=== PATIENT | female | born 2000 | race Caucasian/White ===

== ENCOUNTER 2021-01-09 10:19 | Outpatient (CLI) | payer MEDICAID, SELFPAY ==
--- NOTE | 2021-01-09 | US_ITS ---
WS: [id number] OBSTETRICAL ULTRASOUND COMPLETE HISTORY: ANATOMY SCAN COMPARISON: None available. Single intrauterine gestation in Cephalic presentation. Cervix is Closed and normal length. Cervical length is 4.8 cm. Normal amount of amniotic fluid surrounds the fetus. Placenta: Anterior, no previa or abruption. Placenta grade 1 Heart: 133 BPM. Limited four-chamber evaluation of the heart. Chambers are indistinct but appear norm al size. No obvious abnormality of the outflow tracts. Anatomy: Intracranial structures and spine are normal. kidneys, stomach and urinary bladd er are unremarkable. Abdominal wall, three-vessel cord and cord insertion site are normal. 4 extremities are present. profile: Not visualized. Gender: Female. measurements: BPD = 6.3 cm = 25w3d HC = 23.2 cm = 25w1d AC = 20.0 cm = 24w5d FL = 4.6 cm = 25w1d EFW: 753 g. Biometry is internally concordant. AGA by ultrasound: 25w2d JUNE by ultrasound: 04/22/2021 US/US OB >= 14 weeks fetus [id number] IMPRESSION: 1. Single intrauterine gestation of 25w2d with an JUNE of 04/22/2021. 2. Limited evaluation of the heart and outflow tracts, no abnormality identifi ed concerning the heart. Nonvisualization of the profile. The remaining a natomy is normal.
== END 2021-01-09 10:20 | disposition home or self-care (01) ==
PROVIDERS: Visit Provider Family Medicine
DX: Z36.89 Encounter for other specified antenatal screening (principal); Z3A.25 25 weeks gestation of pregnancy
CPT/HCPCS: 76805

== ENCOUNTER 2021-02-22 16:25 | Emergency (ER) | payer MEDICAID, SELFPAY ==
[2021-02-22 16:39] VITALS: PULSE 104; RESP 18; TEMP 36.6; O2SAT 99; BMI 34.9
--- NOTE | 2021-02-22 17:23 | XRR_ITS ---
PROCEDURE INFORMATION: Exam: XR Left Ankle Exam date and time: 02/22/2021 5:23 PM Age: 20 years old Clinical indication: Patient HX: Left ankle pain; Additional info: Injury, 31 weeks preg TECHNIQUE: Imaging protocol: XR Left ankle. Views: 3 or more views. COMPARISON: No relevant prior studies available. FINDINGS: Bones/joints: Normal. Soft tissues: Normal. XR/XR ankle LT min 3V* [id number] IMPRESSION: No acute findings. Radiation Dose CTDIVOL = (mGy): DLP = (mGy-cm)
--- NOTE | 2021-02-22 17:29 | ED_ITS ---
HPI - Extremity Problem General: Chief complaint: Extremity Injury, Lower Stated complaint: Twisted Left Ankle, 32 wks preg Time Seen by Provider: 02/22/21 17:22 History of Present Illness: HPI Narrative: 20-year-old female comes in today with injury to the left ankle. Patient was walking down some steps and missed stepped on the last step causing her ankle to twist. Patient has some pain and discomfort to the lateral left ankle. Patient is 31 weeks . Patient appears well. No obvious deformity is noted. Review of Systems General: Reports: 10 or more systems reviewed and unremarkable except in HPI and below Musc: Reports: other (Left ankle injury.) PFS ED PFSH: Medical History No pertinent past medical history Denies diabetes, asthma, hypertension, seizures, DVT/PE PCP: None Surgical History Hx of tonsillectomy At the age of 7, no complications Family History Denies family history of Colon cancer Ovarian cancer Diabetes Heart disease Hyperlipidemia Breast cancer Hypertension Uterine cancer Thyroid condition Stroke Physical Exam Const: COMMON NORMALS: no acute distress and patient oriented x3 GENERAL APPEARANCE: cooperative HENMT: COMMON NORMALS: normocephalic HEAD & SCALP: normal to inspection and normocephalic Eye: GENERAL EYE: appearance normal, both eyes and all related structures Neck/C-Spine: COMMON NORMALS: full ROM Chest: COMMONS NORMALS: normal inspection of the chest Resp: COMMON NORMALS: normal respiratory effort EFFORT & INSPECTION: Yes able to speak in complete sentences Cardio: COMMON NORMALS: regular rate and regular rhythm RATE: regular rate RHYTHM: regular rhythm GI: COMMON NORMALS: non-tender Back/Pelvis: COMMON NORMALS: thoracic and lumbar spine normal to inspection Extremity: NARRATIVE EXTREMITY EXAM: No significant swelling noted to the left ankle, tenderness is noted to the lateral aspect of the ankle. Distal pulses and sensation are noted. GENERAL: Yes normal exam except as noted Neuro: COMMON NORMALS: patient oriented x3 and moves all extremities Psych: COMMON NORMALS: mental status grossly normal and cooperative Skin: COMMON NORMALS: no rashes or lesions noted GENERAL SKIN EXAM: no rashes or lesions noted Course Vital Signs: Vital signs: Vital Signs Temperature 97.8 F 02/22/21 16:39 Pulse Rate 104 H 02/22/21 16:39 Respiratory Rate 18 02/22/21 16:39 Pulse Oximetry 99 02/22/21 16:39 MDM - Extremity (Nontraumatic) MDM Narrative: Medical decision making narrative: 20-year-old female comes in today with injury to the left ankle. Patient was walking down some stairs and accidentally stepped wrong causing her to turn her ankle. Patient reports some pain and discomfort with ambulation but is able to remain mobile. On exam distal pulses and sensation is intact. Minimal to no swelling is noted. Differential diagnosis includes fracture, sprain, contusion. X-ray noted no fracture or sprain. Reviewed recommendations with patient for further treatment and follow- up. Patient reported understanding and agreed to plan. Discharge Plan Discharge Patient Disposition: Home Clinical Impression: Ankle sprain and strain Condition: Stable Prescriptions: No Action prenat.vits,becka,[id number] Tablet 1 tab PO DAILY RF: 0 Discharge Orders: Discharge ED (Routine); Ordered 02/22/21 Ordered By: Carl Luna Discharge Diet: Usual diet Discharge Activity: Increase activity as tolerated Patient Instructions: Ankle Sprain (ED), Opioid Safety Activity Restrictions/Additional Instructions: Activity as tolerated. Elevate and ice for the next 2 to 3 days for comfort. Use acetaminophen for further pain relief. Increase activity as tolerated. Follow-up with primary care for further instruction. Stand Alone Forms: Work/School Release Coding Level of Care Code ED Controlled Area Checker for Laurence Fwcrystal Exam Comprehensive
== END 2021-02-22 18:14 | disposition home or self-care (01) ==
PROVIDERS: Emergency Provider Nurse Practitioner Family
DX: S93.402A Sprain of unspecified ligament of left ankle, initial encounter (principal); W17.89XA Other fall from one level to another, initial encounter
CPT/HCPCS: 73610; 99282

== ENCOUNTER 2021-04-08 07:46 | Outpatient (CLI) | payer MEDICAID, SELFPAY ==
--- NOTE | 2021-04-08 07:50 | US_ITS ---
WS: [id number] LIMITED OBSTETRICAL ULTRASOUND HISTORY: SMALL FOR GESTATIONAL AGE COMPARISON: 01/09/2021 Presentation: Vertex. Cervix: Closed and normal length. Placenta: Anterior, no previa or abruption. Grade: 2 HEART: FHR of 141 BPM. measurements: BPD = 8.9 cm = 36w0d HC = 33.0 cm = 37w4d AC = 33.2 cm = 37w0d FL = 7.4 cm = 37w6d FRANDY: 10.0 cm, between the fifth and 50th percentiles. EFW: 3139 g; 64 %. AGA by ultrasound: 37w1d JUNE by ultrasound: 04/28/2021 Measurements are internally concordant. As compared to the prior ultrasound appropriate growth. [place] [id number] IMPRESSION: 1. Single intrauterine gestation of 37 weeks 1 day with an EDC of 04/28/2021. 2. Appropriate growth since the prior ultrasound. No growth asymmetry.
== END 2021-04-08 07:47 | disposition home or self-care (01) ==
LOC: RAD 07:47
PROVIDERS: PCP Family Medicine; Visit Provider Family Medicine
DX: Z36.4 Encounter for antenatal screening for fetal growth retardation (principal); Z3A.37 37 weeks gestation of pregnancy
CPT/HCPCS: 76816

== ENCOUNTER 2021-04-15 00:20 | Outpatient (CLI) | payer MEDICAID, SELFPAY ==
[2021-04-15 00:27] VITALS: RESP 16
[2021-04-15 00:29] VITALS: BMI 36.6
[2021-04-15 00:32] VITALS: BP 123/82; PULSE 118
[2021-04-15 00:33] VITALS: TEMP 35.7
[2021-04-15 00:49] VITALS: BP 126/72; PULSE 95
[2021-04-15 01:04] VITALS: BP 122/75; PULSE 100
[2021-04-15] MEDS: acetaminophen 500 mg Tablet PO (01:07)
== END 2021-04-15 01:12 | disposition home or self-care (01) ==
LOC: OPOB 00:23 → OBGYN 00:23
PROVIDERS: PCP Family Medicine; Visit Provider Family Medicine
DX: O16.9 Unspecified maternal hypertension, unspecified trimester (principal); Z3A.00 Weeks of gestation of pregnancy not specified
CPT/HCPCS: 59025; 99211

== ENCOUNTER 2021-04-20 12:40 | Outpatient (CLI) | payer MEDICAID, SELFPAY ==
[2021-04-20 14:56] LABS: Adenovirus Not Detected (NOT DETECT); Chlamydia Pneumoniae Not Detected (NOT DETECT); Coronavirus 229E,HKU1,NL63,OC4 Not Detected (NOT DETECT); Human Metapneumovirus Detected (NOT DETECT); Human Rhinovirus/Enterovirus Not Detected (NOT DETECT); Influenza A Not Detected (NOT DETECT); Influenza A H1 Not Detected (NOT DETECT); Influenza A H1-2009 Not Detected (NOT DETECT); Influenza A H3 Not Detected (NOT DETECT); Influenza B Not Detected (NOT DETECT); Mycoplasma Pneumoniae Not Detected (NOT DETECT); Parainfluenza Virus Type 1 Not Detected (NOT DETECT); Parainfluenza Virus Type 2 Not Detected (NOT DETECT); Parainfluenza Virus Type 3 Not Detected (NOT DETECT); Parainfluenza Virus Type 4 Not Detected (NOT DETECT); Respiratory Syncytial Virus A Not Detected (NOT DETECT); Respiratory Syncytial Virus B Not Detected (NOT DETECT); SARS-COV-2 Not Detected (NOT DETECT)
[2021-04-20 14:57] LABS: Human Metapneumovirus Detected (NOT DETECT); Human Rhinovirus/Enterovirus Not Detected (NOT DETECT)
== END 2021-04-20 12:50 | disposition home or self-care (01) ==
LOC: OPOB 12:45
PROVIDERS: PCP Family Medicine; Visit Provider Family Medicine
DX: O26.899 Other specified pregnancy related conditions, unspecified trimester (principal); Z3A.00 Weeks of gestation of pregnancy not specified; Z11.52 Encounter for screening for COVID-19
CPT/HCPCS: 87635; 87801

== ENCOUNTER 2021-04-21 18:22 | Inpatient (IN) | payer MEDICAID, SELFPAY ==
[2021-04-21] VITALS (17 sets, daily range): BP systolic 119–145; BP diastolic 59–89; PULSE 110–160; RESP 16; TEMP 36.9; O2SAT 99; BMI 36.1
[2021-04-21 19:41] LABS: Basophils # 0.1 10^3/uL (0.0-0.1); Basophils % 0.4 %; Eosinophils # 0.2 10^3/uL (0.0-0.8); Eosinophils % 1.2 %; Hemoglobin 11.7 g/dL (11.5-15.3); Lymphocytes # 1.4 10^3/uL (1.5-6.5); Mean Corpuscular HGB Conc 32.5 g/dL (30.0-36.0); Mean Corpuscular Hemoglobin 28.7 pg (28.0-34.0); Mean Corpuscular Volume 88.2 fl (81-99); Mean Platelet Volume 10.7 fL (7.4-10.4); Monocytes # 0.6 10^3/uL (0.2-0.9); Monocytes % 4.4 %; Neutrophils # 11.46 10^3/uL (1.8-8.0); Neutrophils % 83.3 %; Nucleated Red Blood Cells % 0 %; Platelet Count 283 10^3/cmm (130-400); Red Blood Count 4.08 10^6/uL (4.1-5.3); Red Cell Distribution Width 14.7 % (12.1-15.1); White Blood Count 13.8 10^3/uL (4.5-13.0)
[2021-04-21] MEDS: acetaminophen 325 mg Tablet 650 MG PO (20:09)
--- NOTE | 2021-04-21 22:06 | P.HP_ITS ---
Providers/Chief Complaint Admitting Physician: Terence Tate MD Primary Care Provider: Terence Tate MD Chief Complaint: induction History of Present Illness Ana M Dorman is a 21 year old at 39.4 weeks gestation by 7-week ultrasound with unknown LMP. Her is complicated by late transfer of care at 23 weeks from [place], gestational hypertension, anemia. The patient presents to labor and delivery triage for induction of labor secondary to gestational hypertension. Her blood pressures have been gradually increasing. Her 24-hour urine protein was 187 1 week ago. Her other labs were unremarkable. The patient denies any chest pains, shortness of breath, nausea, vomiting, diarrhea, constipation, leakage of fluid. She had some mild spotting after her cervical exam yesterday in clinic. She does have symptoms of a cold and had a slight temperature this morning. Her Covid test was negative yesterday on 04/20/2021. Medications/Allergies Home Medications Medication Instructions Recorded Confirmed Last Taken Type prenat.vits,becka,bfe-[id number] 1 tab PO DAILY 12/23/20 04/15/21 04/21/21 12:00 History ferrous sulfate 325 mg PO BID 04/15/21 04/15/21 04/21/21 12:00 History Allergies Allergy/AdvReac Type Severity Reaction Status Date / Time No Known Allergies Allergy Verified 04/15/21 00:29 PFSH Acute PFSH: Medical History No pertinent past medical history Denies diabetes, asthma, hypertension, seizures, DVT/PE PCP: None Surgical History Hx of tonsillectomy At the age of 7, no complications Family History Denies family history of Colon cancer Ovarian cancer Diabetes Heart disease Hyperlipidemia Breast cancer Hypertension Uterine cancer Thyroid condition Stroke Social History (Updated 04/21/21 @ 22:09 by Terence Tate MD) Smoking and tobacco status: never smoked Alcohol intake: never Substance/Drug Use: never Female Reproductive History: : 2 Vitals/I&O/Wt Last Vital Signs Temp 98.4 F 04/21/21 19:00 Pulse 131 H 04/21/21 19:59 Resp 16 04/21/21 19:00 BP 132/73 04/21/21 19:59 Pulse Ox 99 04/21/21 18:45 Weight last 48 hrs Weight 217 lb Physical Exam Narrative: EXAM NARRATIVE: General: Alert and oriented x3 Eyes: Pupils equal round and reactive to light and accommodation Mouth: Mucous membranes moist, pharynx non-erythematous Cardiac: Regular rate and rhythm without murmurs Lungs: Clear to auscultation bilaterally without wheezes, crackles or rhonchi Abdomen: Soft, non-tender, fundus consistent with gestational age Extremities: Trace edema in the bilateral lower extremities Data : 04/21/21 18:40 A&P Assessment and plan (1) Supervision of normal : Status: Acute (2) Gestational hypertension: Status: Acute Additional A&P Information The patient GBS is negative. Her blood pressure is currently 132/73 without medication. Her Covid swab was negative on 04/20/2021. Her 24 urine protein was negative for preeclampsia. Initial cervical exam is 2/50/-3/firm/posterior. We will plan to start the patient on Cytotec and give up to 3 doses if needed. The patient may have a laboring epidural if desired when she gets to 3 to 4 cm. Induction process was discussed with the patient and she is in agreement with the current plan of care. All questions were answered. Attestations Medical Necessity Statement*: The patient will be here for greater than 2 midnights due to routine intrapartum and management of labor and delivery. Coding Level of Care Code Acute Rolling Mill Operator Helper for Laurence Madrigal Diagnoses Supervision of normal Z34.90 Gestational hypertension O13.9
[2021-04-21] MEDS: miSOPROStol 100 mcg tablet 25 MCG VAGINAL (23:10)
[2021-04-22] VITALS (70 sets, daily range): BP systolic 101–186; BP diastolic 54–103; PULSE 81–136; RESP 16–18; TEMP 36–36.9; O2SAT 97–100
[2021-04-22] MEDS: acetaminophen 325 mg Tablet 650 MG PO ×2 (02:37→09:32)
[2021-04-22] MEDS: dextrose 5%-lactated ringers 1,000 ML 125 ML IV ×2 (02:45→16:35)
[2021-04-22] MEDS: miSOPROStol 100 mcg tablet 25 MCG VAGINAL ×2 (03:13→08:11)
--- NOTE | 2021-04-22 08:51 | PM.PN ---
Subjective Subjective: Interval history: The patient is doing well. She has received 2 doses of Cytotec overnight. She received a third dose at approximately 8:30 AM today. She is having some mild cramping, however no further symptoms. The patient has not had any bleeding or leaking fluid. Vitals/I&O/Wt Last Vital Signs Temp 98.4 F 04/21/21 19:00 Pulse 90 04/22/21 08:49 Resp 16 04/21/21 22:00 BP 125/69 04/22/21 08:49 Pulse Ox 99 04/21/21 18:45 Weight last 48 hrs Weight 217 lb Physical Exam Narrative: EXAM NARRATIVE: General: Alert and oriented x3 Cardiac: Regular rate and rhythm without murmurs Lungs: Clear to auscultation bilaterally without wheezes, crackles or rhonchi Abdomen: Soft, non-tender, fundus consistent with gestational age Extremities: Trace edema in the bilateral lower extremities Data : 04/21/21 18:40 A&P Assessment and plan (1) Supervision of normal : Status: Acute (2) Gestational hypertension: Status: Acute Additional A&P Information The patient is continuing to do well there are no signs of complications at this time. heart tones are in the mid 140s with moderate variability good accelerations. She has a category 1 tracing. Contractions are every 2 minutes. Continue with Cytotec at this time and plan for starting Pitocin around 1230 if everything is going well. The patient is in agreement with the current plan of care. Attestations Medical Necessity Statement*: The patient continues to need inpatient care and will be here for greater than 2 midnights. Coding Level of Care Code Acute Drivers' Cash Clerk for Laurence Madrigal Diagnoses Supervision of normal Z34.90 Gestational hypertension O13.9
[2021-04-22] MEDS: oxytocin 30 UNIT/500 ML BAG 4 UNIT IV (13:25)
--- NOTE | 2021-04-22 15:01 | ANES.PREANE2 ---
Pre-Anesthetic Assessment Pre-Anesthetic Assessment: Height/Weight: Height 1.65 m Weight 98.43 kg Temp Pulse Resp BP Pulse Ox 96.8 F L 93 18 135/73 99 04/22/21 12:49 04/22/21 14:51 04/22/21 11:00 04/22/21 14:51 04/21/21 18:45 Preop Diagnosis: IUP Proposed Procedure: labor epidural Was Beta Buzz taken within 24 hours: N/A Was Clonidine taken within 24 hours: N/A Social: Social History: No alcohol and No tobacco Exam: Pre-Anes Outpt Exam: alert and oriented x 3 Airway: Submandibular: WNL Cervical ROM: WNL MP: 3 Dentition: Full History/ROS: No significant history except as noted Pulmonary: Pulmonary: None reported CV/HEM: CV/HEM: None reported : : None reported Hepatic: Hepatic: None reported GI: GI: GERD Metabolic: Metabolic: None reported Musc/skel: Musc/skel: None reported Neuropsych: Neuropsych: None reported Anesthetic Plan: ASA status: 2 Anesthesia: Anesthesia Evaluation and Regional (specify below) (epidural) Risk of > 500 ml blood loss (7ml/kg in children): No Meds/Allergies Current Medications: Current Medications Generic Name Dose Route Start Last Admin Trade Name Freq PRN Reason Stop Dose Admin Acetaminophen 650 mg 04/21/21 18:20 04/22/21 09:32 Acetaminophen 32 5 Mg Tablet PO 650 mg Q6H PRN Administration Mild pain or temp > 100.4 Dextrose/Lactated Ringer's 1,000 mls @ 125 m ls/hr 04/21/21 18:30 04/22/21 02:45 Dextrose 5%-Lact ated Ringers IV 125 mls/hr .Q8H TRACY Administration Oxytocin 30 unit in 500 ml s @ 0 mls/hr 04/22/21 13:15 04/22/21 14:27 Pitocin IV 12 milliunit/min .Q0M TRACY 12 mls/hr Titration Protocol As Directed PFSH Anesthesia PFSH: Medical History No pertinent past medical history Denies diabetes, asthma, hypertension, seizures, DVT/PE PCP: None Surgical History Hx of tonsillectomy At the age of 7, no complications Family History Denies family history of Colon cancer Ovarian cancer Diabetes Heart disease Hyperlipidemia Breast cancer Hypertension Uterine cancer Thyroid condition Stroke Social History (Updated 04/21/21 @ 22:09 by Terence Tate MD) Smoking and tobacco status: never smoked Alcohol intake: never Substance/Drug Use: never Female Reproductive History: : 2 Data Anesthesia CBC & Chem 7: 04/21/21 18:40 Other Labs: Laboratory Results - last 48 hr 04/21/21 18:40 WBC 13.8 H RBC 4.08 L Hgb 11.7 Hct 36.0 L MCV 88.2 MCH 28.7 MCHC 32.5 RDW 14.7 Plt Count 283 MPV 10.7 H Neut % (Auto) 83.3 Lymph % (Auto) 10.0 [place] % (Auto) 4.4 Eos % (Auto) 1.2 Baso % (Auto) 0.4 Neut # (Auto) 11.46 H Lymph # (Auto) 1.4 L [place] # (Auto) 0.6 Eos # (Auto) 0.2 Baso # (Auto) 0.1 Nucleated RBC % (auto) 0 Nucleated RBCs # 0.0 Cardiac Studies: No Data to Display
--- NOTE | 2021-04-22 16:06 | ANES.PROC ---
Anesthesia Procedures Procedure/Date: 04/22/21 labor epidural Epidural: Time Out Performed: Yes Consents Signed: Procedure Consent Consent: from patient, risks and benefits reviewed and patient agrees to proceed Lumbar Level: L2-L3 Epidural position: sitting Epidural procedure: sterile prep of area, 1% lidocaine to numb the area, 18 g needle, neg for paresthesia, test dose given, 1.5% xylocaine 1:200k epi, placed PCEA, no systemic response, sterile dressing applied, L.U.D. no apparent complications and 0.2% Ropiavacaine @ mls/hr (13) Additional Comments: RENZO at 6.5 Taped at 12 at skin.
[2021-04-22] MEDS: lidocaine 2% INJ 20 mL INJECTION (18:57)
--- NOTE | 2021-04-22 19:20 | PM.DELIVERY ---
Delivery Note: Date of delivery: April 22, 2021 Pre-delivery diagnoses: 1. Intrauterine at 39.5 weeks gestation 2. Late transfer of care at 23 weeks from [place] 3. Gestational hypertension 4. Anemia Post-delivery diagnoses: 1. Intrauterine status post spontaneous vaginal delivery at 39.5 weeks gestation 2. Late transfer of care at 23 weeks from [place] 3. Gestational hypertension 4. Anemia 5. Delivery of healthy female weighing 7 pounds 6 ounces with Apgars of 8 and 9 Procedure: Spontaneous vaginal delivery. Op report anesthesia: Epidural Delivering Physician: Terence Tate MD Estimated blood loss (mL): 100 Findings: Ana M Dorman is a 21 year old G2 now P1 status post spontaneous vaginal delivery at 39.5 weeks gestation by 7-week ultrasound with unknown LMP. Her was complicated by late transfer of care at 23 weeks from [place], gestational hypertension, anemia. 1. Healthy female weighing 7 pounds 6 ounces with Apgars of 8 and 9 2. Healthy appearing intact placenta with peripheral umbilical cord insertion site. Pre-Delivery Course: The patient was admitted to labor and delivery for induction of labor secondary to gestational hypertension. The patient was started on Cytotec on the evening of 04/21/2021 at approximately 11 PM. The patient was given 3 doses of Cytotec and she made a small amount of change from 2 to 3 cm. She was started on IV Pitocin at approximately 12:30 PM on 04/22/2021. She made good cervical change with this and had spontaneous rupture of membranes at 1543 on 04/22/2021. Clear fluid was noted. The patient continued to make good change and was complete by 1810 on 04/22/2021. Delivery: The patient began pushing at 1816 on 04/22/2021. The patient pushed well and the infant delivered in the OA position at 1846 on 04/22/2021. A nuchal cord was noted and reduced prior to delivery of the . The left shoulder was the anterior shoulder and it delivered with steady downward pressure. The rest of the delivered without complication. Terminal meconium was noted. The infant's mouth and nose were bulb suctioned by myself. The infant was placed on the mother's chest where the nurses were waiting to care for her. The umbilical cord was clamped after approximately 1 minute and cut by the 's grandmother. Cord blood was obtained. The cord was then drained of blood and traction was placed on the umbilical cord. Uterine massage was carried out and the placenta delivered at 1850 on 04/22/2021. The placenta was noted to be intact with a peripheral umbilical cord insertion site. IV Pitocin was bolused. The uterus was massaged. The cervix was inspected and no lacerations were noted. Vaginal wall was inspected and a second-degree right lower vaginal wall laceration was noted. This was bleeding. 2% lidocaine was placed for anesthesia. 3-0 Vicryl was used in a running fashion to repair the laceration. The patient tolerated this well. A rectal exam was done and no sutures were noted in the rectal vault. Currently both the mother and are doing well. The mother will try breast-feeding but is not sure if she will breast-feed or bottle feed at this time. History History History 1 Term 0 Miscarriages/Ectopic 1 0 Living Children 0 A&P Assessment and plan (1) Supervision of normal : Status: Acute (2) Gestational hypertension: Status: Acute (3) Spontaneous vaginal delivery: Status: Acute Coding Level of Care Code Acute Business Education Teacher for Chg Fwd Diagnoses Supervision of normal Z34.90 Gestational hypertension O13.9 Spontaneous vaginal delivery O80
[2021-04-22] MEDS: ibuprofen 800 mg tablet PO (21:14)
[2021-04-22] MEDS: benzocaine-menthol 78 gm Canister 1 SPRAY TOPICAL (21:14)
[2021-04-23] VITALS (7 sets, daily range): BP systolic 108–126; BP diastolic 66–80; PULSE 59–102; RESP 16–18; TEMP 36.4–36.8; O2SAT 97–98
[2021-04-23] MEDS: HYDROcodone-acetaminophen 5-325 mg Tablet PO (02:16)
[2021-04-23 07:51] LABS: Hematocrit 31.7 % (37.0-47.0); Hemoglobin 10.1 g/dL (11.5-15.3); Mean Corpuscular HGB Conc 31.9 g/dL (30.0-36.0); Mean Corpuscular Hemoglobin 28.5 pg (28.0-34.0); Mean Corpuscular Volume 89.5 fl (81-99); Mean Platelet Volume 10.6 fL (7.4-10.4); Platelet Count 194 10^3/cmm (130-400); Red Blood Count 3.54 10^6/uL (4.1-5.3); Red Cell Distribution Width 14.8 % (12.1-15.1); White Blood Count 10.7 10^3/uL (4.5-13.0)
[2021-04-23] MEDS: ibuprofen 800 mg tablet PO ×3 (08:08→21:04)
[2021-04-23] MEDS: docusate sodium 100 mg Capsule PO ×2 (08:08→18:10)
[2021-04-23] MEDS: prenatal vitamin Capsule 1 CAP PO (08:08)
--- NOTE | 2021-04-23 13:42 | P.PN_ITS ---
Subjective Subjective: Interval history: The patient is doing well today. She is ambulating, voiding, passing gas and tolerating food by mouth. Vitals/I&O/Wt Last Vital Signs Temp 98.1 F 04/23/21 08:00 Pulse 59 L 04/23/21 08:00 Resp 18 04/23/21 08:00 BP 123/80 04/23/21 08:00 Pulse Ox 98 04/23/21 04:59 04/22/21 04/23/21 04/23/21 22:59 06:59 14:59 Output Total 450 / 450 500 / 950 Balance -450 / 556.133 -500 / 56.133 Weight last 48 hrs Weight 217 lb Physical Exam Narrative: EXAM NARRATIVE: General: Alert and oriented x3 Cardiac: Regular rate and rhythm without murmurs Lungs: Clear to auscultation bilaterally without wheezes, crackles or rhonchi Abdomen: Soft, mild tenderness over the uterus. Fundus is firm and 2 cm below the umbilicus. Extremities: Trace edema in the bilateral lower extremities Urinary Catheter Management^: Tavarez: Cath Placed During This Visit: yes Urinary Catheter Date of Insertion: 04/22/21 Urinary Catheter Time of Insertion: 16:25 Data : 04/23/21 07:40 A&P Assessment and plan (1) Spontaneous vaginal delivery: Status: Acute Additional A&P Information The patient is doing well overall. Her blood pressures are currently well controlled. We will continue with routine management and plan for discharge home tomorrow if everything continues to go well. Attestations Medical Necessity Statement*: The patient continues to need inpatient care as she recovers after having a spontaneous vaginal delivery. Her stay will cross 2 midnights. Coding Level of Care Code Acute Costume Mistress for Laurence Madrigal Diagnoses Spontaneous vaginal delivery O80
[2021-04-24] MEDS: HYDROcodone-acetaminophen 5-325 mg Tablet PO (01:16)
[2021-04-24 04:09] VITALS: BP 124/67; PULSE 102; RESP 17; TEMP 36.5; O2SAT 96
[2021-04-24] MEDS: ibuprofen 800 mg tablet PO (08:32)
[2021-04-24] MEDS: prenatal vitamin Capsule 1 CAP PO (08:32)
[2021-04-24] MEDS: docusate sodium 100 mg Capsule PO (08:32)
[2021-04-24 08:34] VITALS: PULSE 136; RESP 40; TEMP 36.9
--- NOTE | 2021-04-24 08:59 | PM.DCS ---
Discharge Providers Date of Admission: 04/21/21 18:22 Date of Discharge: April 24, 2021 Attending Provider at Admission: Terence Tate MD Attending Provider at Discharge: Terence Tate MD Primary Care Provider: Terence Tate MD Diagnoses at Discharge Discharge Diagnosis (1) Supervision of normal : Status: Acute (2) Gestational hypertension: Status: Acute (3) Spontaneous vaginal delivery: Status: Acute Reason for Visit Reason for Visit: induction Hospital Course Hospital Course Pre-Delivery Course: The patient was admitted to labor and delivery for induction of labor secondary to gestational hypertension. The patient was started on Cytotec on the evening of 04/21/2021 at approximately 11 PM. The patient was given 3 doses of Cytotec and she made a small amount of change from 2 to 3 cm. She was started on IV Pitocin at approximately 12:30 PM on 04/22/2021. She made good cervical change with this and had spontaneous rupture of membranes at 1543 on 04/22/2021. Clear fluid was noted. The patient continued to make good change and was complete by 1810 on 04/22/2021. Delivery: The patient began pushing at 1816 on 04/22/2021. The patient pushed well and the delivered in the OA position at 1846 on 04/22/2021. A nuchal cord was noted and reduced prior to delivery of the . The left shoulder was the anterior shoulder and it delivered with steady downward pressure. The rest of the infant delivered without complication. Terminal meconium was noted. The infant's mouth and nose were bulb suctioned by myself. The infant was placed on the mother's chest where the nurses were waiting to care for her. The umbilical cord was clamped after approximately 1 minute and cut by the 's grandmother. Cord blood was obtained. The cord was then drained of blood and traction was placed on the umbilical cord. Uterine massage was carried out and the placenta delivered at 1850 on 04/22/2021. The placenta was noted to be intact with a peripheral umbilical cord insertion site. IV Pitocin was bolused. The uterus was massaged. The cervix was inspected and no lacerations were noted. Vaginal wall was inspected and a second-degree right lower vaginal wall laceration was noted. This was bleeding. 2% lidocaine was placed for anesthesia. 3-0 Vicryl was used in a running fashion to repair the laceration. The patient tolerated this well. A rectal exam was done and no sutures were noted in the rectal vault. : The patient has done very well without complications. Her pain is well controlled. Her blood pressures are in a good range. She is ambulating, voiding, passing gas and tolerating food by mouth. Her bleeding is decreasing well. We will continue with routine care and discharge home at this time. Routine discharge instructions were discussed. The patient is in agreement with discharge home at this time. Physical Exam Narrative: EXAM NARRATIVE: General: Alert and oriented x3 Cardiac: Regular rate and rhythm without murmurs Lungs: Clear to auscultation bilaterally without wheezes, crackles or rhonchi Abdomen: Soft, mild tenderness over the uterus. Fundus is firm and 2 cm below the umbilicus. Extremities: +1 pitting edema in the bilateral lower extremities Urinary Catheter Management^: Tavarez: Cath Placed During This Visit: yes Urinary Catheter Date of Insertion: 04/22/21 Urinary Catheter Time of Insertion: 16:25 Discharge Data Vitals: Last Vital Signs Temp 98.4 F 04/24/21 08:34 Pulse 136 H 04/24/21 08:34 Resp 40 H 04/24/21 08:34 BP 124/67 04/24/21 04:09 Pulse Ox 96 04/24/21 04:09 Discharge Plan Discharge Patient Disposition: Home Condition: Good Prescriptions: New ibuprofen 800 mg Tablet 800 mg PO TID Qty: 60 RF: 0 hydrocodone-acetaminophen 5-325 mg Tablet 1 tab PO Q6H PRN (Reason: Moderate To Severe Pain) Qty: 15 RF: 0 docusate sodium 100 mg Capsule 100 mg PO BID Qty: 30 RF: 0 Continued prenat.vits,becka,[id number] Tablet 1 tab PO DAILY RF: 0 ferrous sulfate 325 mg (65 mg iron) Tablet 325 mg PO BID Qty: 60 RF: 0 Discharge Orders: Discharge Order (Routine); Ordered 04/24/21 Ordered By: Terence Tate Referrals: Terence Taet MD [Primary Care Provider] - 6 Weeks Discharge Diet: Usual diet Discharge Activity: Increase activity as tolerated Patient Instructions: Opioid Safety Activity Restrictions/Additional Instructions: Nothing per vagina for 6 weeks. Please check your blood pressure at home and if it is getting over 160/110, please call Dr. Tate's office for recommendations. Discharge Attestations Time Spent in Discharge Care*: greater than 30 min Quality Metrics Clinical Quality Measures During this hospital stay, did patient experience: None Coding Level of Care Code Acute Chg [facility] note Diagnoses Supervision of normal Z34.90 Gestational hypertension O13.9 Spontaneous vaginal delivery O80
[2021-04-24 10:58] VITALS: BP 133/80; PULSE 91; RESP 16; TEMP 36.5; O2SAT 99
--- NOTE | 2021-04-26 10:14 | ANE.PACU2 ---
Inpatient post-anesthesia follow up: Airway intact: Yes Vital signs: Temperature 97.7 F Pulse Rate 91 Respiratory Rate 16 Blood Pressure 133/80 Pulse Oximetry 99 Oxygen Delivery Me thod Room Air Oxygen Flow Rate Fraction of Inspir ed Oxygen Hydration adequate: Yes Nausea and vomiting: No Pain level: 2 Mental status: Baseline
== END 2021-04-24 10:35 | disposition home or self-care (01) | DRG 807 ==
LOC: OPOB 18:24 → OBGYN 18:24
PROVIDERS: Admitting Provider Family Medicine; PCP Family Medicine; Visit Provider Family Medicine
DX: O13.4 Gestational [pregnancy-induced] hypertension without significant proteinuria, complicating childbirth (principal); Z37.0 Single live birth; O99.02 Anemia complicating childbirth; D64.9 Anemia, unspecified; O77.0 Labor and delivery complicated by meconium in amniotic fluid; O70.1 Second degree perineal laceration during delivery; O69.81X0 Labor and delivery complicated by cord around neck, without compression, not applicable or unspecified; Z3A.39 39 weeks gestation of pregnancy
CPT/HCPCS: 36415; 51702; 59025; 59409; 83986; 85025; 85027; 99211

== ENCOUNTER → 2022-08-11 12:59 | Outpatient (BNVA) | payer MEDICAID, SELFPAY | PROVIDERS: PCP Family Medicine; Visit Provider Clinical Nurse Specialist Adult Health | DX: J02.0 Streptococcal pharyngitis (principal); J01.40 Acute pansinusitis, unspecified | CPT/HCPCS: 87426 ==

== ENCOUNTER → 2022-12-27 15:12 | Outpatient (BNVA) | payer MEDICAID, SELFPAY | PROVIDERS: PCP Family Medicine; Visit Provider Clinical Nurse Specialist Adult Health | DX: J02.9 Acute pharyngitis, unspecified (principal); J01.40 Acute pansinusitis, unspecified; N76.0 Acute vaginitis; Z01.419 Encounter for gynecological examination (general) (routine) without abnormal findings | CPT/HCPCS: 80053; 83036; 84439; 84443; 85025; 87481; 87491; 87591; 87624; 87661 ==

== ENCOUNTER 2023-01-06 07:48 | Outpatient (CLI) | payer MEDICAID, SELFPAY ==
--- NOTE | 2023-01-06 08:30 | US_ITS ---
WS: [id number] US pelv w/transvag [id number] HISTORY: Bilateral pelvic pain COMPARISON: None available. Uterus: 8.6 cm x 5.0 cm x 3.4 cm. Normal size anteverted uterus. No fibroid or mass. Endometrium: 0.5 cm. Normal. No increased vascularity or mass. Tiny amount of fluid along the cervica l canal Right ovary: 3.7 cm x 2.4 cm x 2.7 cm. Normal size and vascularity, no cystic or solid masses. Severa l small follicles. The largest with a maximal diameter of 1.9 cm. Left ovary: 3.3 cm x 1.8 cm x 2.5 cm. Normal size and vascularity, no cystic or solid masses. Small, physiologic amount of free fluid in the cul-de-sac. IMPRESSION: Normal pelvic ultrasound.
== END 2023-01-06 07:49 | disposition home or self-care (01) ==
PROVIDERS: PCP Family Medicine; Visit Provider Family Medicine
DX: R10.2 Pelvic and perineal pain (principal)
CPT/HCPCS: 76830; 76856

== ENCOUNTER → 2023-02-06 11:56 | Outpatient (BNVA) | payer MEDICAID, SELFPAY | PROVIDERS: PCP Family Medicine; Visit Provider Family Medicine | DX: Z34.90 Encounter for supervision of normal pregnancy, unspecified, unspecified trimester (principal); R30.0 Dysuria | CPT/HCPCS: 80307; 81000; 81025; 84144; 84443; 84702; 85025; 86592; 86762; 86803; 86850; 86900; 87086; 87340; 87491; 87591; 87624; 87806 ==

== ENCOUNTER 2023-02-20 13:49 | Outpatient (CLI) | payer MEDICAID, SELFPAY ==
--- NOTE | 2023-02-20 14:00 | US_ITS ---
WS: [id number] EARLY OBSTETRICAL ULTRASOUND (<14 WEEKS). HISTORY: Dating US - in the next 2-3 weeks COMPARISON: None available. Single intrauterine gestational sac is identified. Cardiac activity at 160 BPM. Velva-rump length ghada sures 1.1 cm which corresponds to a gestation of 7w2d. Normal-appearing yolk sac and amnion demonstra home. No subchorionic hemorrhage. No free fluid. Corpus luteum cyst in the cul-de-sac appears to be associated with the RIGHT ovary. Corpus luteal cys t measures 3.0 x 3.2 x 3.3 cm. IMPRESSION: 1. Single intrauterine gestation of 7 weeks 6 days with an EDC of 10/03/2023. 2. RIGHT ovarian corpus luteum cyst of . 3. Normal cardiac activity.
== END 2023-02-20 13:50 | disposition home or self-care (01) ==
LOC: RAD 13:49
PROVIDERS: PCP Family Medicine; Visit Provider Family Medicine
DX: Z36.89 Encounter for other specified antenatal screening (principal); O34.81 Maternal care for other abnormalities of pelvic organs, first trimester; N83.11 Corpus luteum cyst of right ovary; Z3A.01 Less than 8 weeks gestation of pregnancy
CPT/HCPCS: 76801; 76817

== ENCOUNTER → 2023-05-01 08:08 | Outpatient (BNVA) | payer MEDICAID, SELFPAY | PROVIDERS: PCP Family Medicine; Visit Provider Obstetrics & Gynecology | DX: Z34.80 Encounter for supervision of other normal pregnancy, unspecified trimester (principal) | CPT/HCPCS: 81025 ==

== ENCOUNTER 2023-05-26 12:03 | Outpatient (CLI) | payer MEDICAID, SELFPAY ==
--- NOTE | 2023-05-26 14:46 | US_ITS ---
WS: [id number] OBSTETRICAL ULTRASOUND COMPLETE HISTORY: Anatomy US about 10 wks from now COMPARISON: 02/20/2023 Single intrauterine gestation in breech presentation. Cervix is Closed and normal length. Cervical length is 3.4 cm. Normal amount of amniotic fluid surrounds the fetus. Placenta: Anterior and fundal. Placenta grade 1 Heart: 150 BPM. Four chambers are identified. RIGHT and LEFT outflow tracts are unremarkable. Anatomy: Intracranial structures and spine are normal. kidneys, stomach and urinary bladd er are unremarkable. Abdominal wall, three-vessel cord and cord insertion site are normal. 4 extremities are present. profile: Unremarkable. Gender: Male. measurements: BPD = 5.2 cm = 21 weeks 6 days; HC = 19.4 cm = 21 weeks 5 days; AC = 16.2 cm = 21 weeks 2 days; FL = 3.7 cm = 21 weeks 5 days; EFW: 430 g. 66% Biometry is internally concordant. AGA by ultrasound: 21 weeks 4 days JUNE by ultrasound: 10/02/2023 IMPRESSION: 1. Single intrauterine gestation of 21 weeks 4 days with an JUNE of 10/02/2023. 2. Unremarkable screening survey of anatomy.
== END 2023-05-26 12:04 | disposition home or self-care (01) ==
LOC: RAD 12:03
PROVIDERS: PCP Family Medicine; Visit Provider Family Medicine
DX: Z36.9 Encounter for antenatal screening, unspecified (principal)
CPT/HCPCS: 76805

== ENCOUNTER 2024-01-21 19:32 | Emergency (ER) | payer MEDICAID, SELFPAY ==
[2024-01-21 19:39] VITALS: BP 149/81; PULSE 88; RESP 18; TEMP 36.7; O2SAT 99; BMI 39.1
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
[2024-01-21 21:29] LABS: HCG, Serum Qual Negative (Negative)
[2024-01-21] MEDS: iohexol 350 mg/mL 500 mL Btl (per mL) IV (21:35)
[2024-01-22 00:20] VITALS: BP 110/64; PULSE 90; RESP 16; O2SAT 97
== END 2024-01-22 00:29 | disposition home or self-care (01) ==
PROVIDERS: Emergency Provider Nurse Practitioner Family; PCP Family Medicine
DX: S29.019A Strain of muscle and tendon of unspecified wall of thorax, initial encounter (principal); V59.40XA Driver of pick-up truck or van injured in collision with unspecified motor vehicles in traffic accident, initial encounter
CPT/HCPCS: 36415; 71260; 72125; 74177; 84703; 99285

== ENCOUNTER → 2024-03-20 10:37 | Outpatient (BNVA) | payer MEDICAID, SELFPAY | PROVIDERS: PCP Family Medicine; Visit Provider Emergency Medicine | DX: R05.9 Cough, unspecified (principal); J02.9 Acute pharyngitis, unspecified; B34.9 Viral infection, unspecified | CPT/HCPCS: 87071; 87400; 87880 ==